=== PATIENT | female | born 1985 | race Caucasian/White ===

== ENCOUNTER 2019-06-23 15:03 | Outpatient (CLI) | payer BC ==
[~2019-06-23] VITALS: Ht 165.1 cm; Wt 78.6 kg
--- NOTE | 2019-06-23 15:00 | NUR ---
Pt arrives on unit ambulatory with spouse. States SROM of clear fluid at 1440. Denies ctx and vaginal bleeding. Reports GFM. Changed into clean gown. RN notes fluid on leg and floor. Amniotest positive. SVE per this RN /3. EFM x2 and toco applied. Dr. Thomas notified. See physician notification. Admission assessment completed. IV started in right wrist. Labs drawn. LR infusing. Pt updated on POC. No questions or concerns at this time.
[~2019-06-23 15:03] MED LIST: PERCOCET 325 MG1 TA2 PO; PRENATAL1 TA2 PO; SENOKOT S 50 MG1 TAB PO
[2019-06-23 15:40] LABS: BASO % 0.1 % (0.0-2.0); EOS % 0.1 % (0-4.0); GRAN # 11.7 (1.4-6.5); GRAN % 80.6 % (42.2-75.2); HEMATOCRIT 37.4 % (37.0-47.0); HEMOGLOBIN 12.6 g/dl (12.5-16.0); LYMPH # 1.5 (1.2-3.4); LYMPH % 10.4 % (20.0-51.0); MEAN CELL VOLUME 92 fl (80.0-100.0); MEAN CORPUSCULAR HEMOGLOBIN 31 pg (27.0-31.0); MEAN CORPUSCULAR HGB CONC 34 g/dl (33.0-37.0); MEAN PLATELET VOLUME 10.9 fl (7.4-10.4); MONO # 1.1 (0.1-0.6); MONO % 7.7 % (1.7-9.3); PLATELET COUNT 202 K/mm3 (130-400); RED BLOOD COUNT 4.08 M/mm3 (4.10-5.30); REDCELL DISTRIBUTION WIDTH-CV 12.7 % (11.5-14.5)
--- NOTE | 2019-06-23 15:58 | NUR ---
Patient will transfer to [facility] labor and delivery. Dr. Rodas is accepting. Confirmed acceptance with WALLY Moran at [facility]. Transportation arranged with [facility]. They will be here soon to take her. Consent for tranfer signed by patient and witnessed by this RN.
[2019-06-23 16:00] VITALS: BP 127/83; PULSE 107; TEMP 98.4
[2019-06-23 16:05] LABS: ALBUMIN 3.7 gm/dL (3.5-5.0); BILIRUBIN,TOTAL 0.5 mg/dL (0.0-1.0); CREATININE, serum 0.5 (0.52-1.25); POTASSIUM 3.9 mmol/L (3.4-5.0); TOTAL PROTEIN 6.7 gm/dL (6.4-8.2)
[2019-06-23 16:07] VITALS: BP 118/67; PULSE 111
--- NOTE | 2019-06-23 16:10 | NUR ---
Pt leaves via stretcher off unit.
== END 2019-06-23 16:10 | disposition home or self-care (01) ==
LOC: LDRO 15:03 → LDR 15:03 → LDRO 15:04 → LDR 15:04 → LDRO 15:04 → LDR 16:10 → LDRO 16:10 → LDR 16:10
PROVIDERS: Obstetrics & Gynecology
DX: O42.913 Preterm premature rupture of membranes, unspecified as to length of time between rupture and onset of labor, third trimester (principal); Z3A.30 30 weeks gestation of pregnancy
CPT/HCPCS: J0690; J3475; J7120

== ENCOUNTER → 2020-04-18 | Outpatient (CLI) | payer BC | LOC: ZCOL.LAB 17:09 | DX: J02.9 Acute pharyngitis, unspecified (principal); Z20.828 Contact with and (suspected) exposure to other viral communicable diseases ==

== ENCOUNTER → 2020-11-20 | Outpatient (CLI) | payer BC | LOC: COL.RAD 08:47 | DX: M19.032 Primary osteoarthritis, left wrist (principal); S52.612K Displaced fracture of left ulna styloid process, subsequent encounter for closed fracture with nonunion; M94.8X8 Other specified disorders of cartilage, other site | CPT/HCPCS: A9585; Q9967 ==